=== PATIENT | male | born 1945 | race Caucasian/White ===

== ENCOUNTER 2017-10-24 12:04 | Inpatient (IN) ==
[2017-10-24] MEDS ORDERED: Aspirin 325 MG TABLET PO ONE (12:42)
--- NOTE | 2017-10-24 12:57 | Emergency Department Note ---
Disposition Clinical Impression: Atrial fibrillation Qualifiers: Atrial fibrillation type: paroxysmal Qualified Code(s): I48.0 - Paroxysmal atrial fibrillation Disposition: Admitted As Inpatient Condition: Fair Time of Disposition: 14:18 Arrhythmia/Palpitations HPI - General Chief Complaint: ED Arrhythmia/Palpitations Stated Complaint: heart racing Time Seen by Provider: 10/24/17 12:10 Nursing Notes Reviewed: Yes Vital Signs Reviewed: Yes - History of Present Illness HPI Narrative: Patient is a 72-year-old male past medical history of hypertension, diabetes, hyperlipidemia, coronary artery disease, atrial fibrillation with a past surgical history of right below the knee amputation and coronary stent placement (2013) that presents for palpitations and arrhythmia. Patient said symptoms started around 4:30 AM today. Palpitations would last one to 2 minutes and would be accompanied by left upper quadrant pressure. She denies any chest pain or shortness of breath. Denies any dizziness or lightheadedness. Denies any syncope. Last incidence of atrial fibrillation was 4 years ago. Patient is currently on Plavix and aspirin. No history of blood clot disorders. He admits to a history of hemorrhoids and does occasionally have blood while wiping but denies any hematochezia or melena. - Related Data Home Medications Medication Instructions Recorded Confirmed Allopurinol [Zyloprim 300 MG] 300 mg PO DAILY 05/29/17 10/24/17 Aspirin [Lo-Dose Aspirin EC] 81 mg PO DAILY 05/29/17 10/24/17 Atorvastatin Calcium [Lipitor] 20 mg PO HS 05/29/17 10/24/17 Fluticasone Propionate Nasal 50 mcg NS DAILY 05/29/17 10/24/17 [Flonase] Losartan Potassium [Cozaar] 100 mg PO DAILY 05/29/17 10/24/17 Metoprolol [Lopressor] 12.5 mg PO BID 05/29/17 10/24/17 metFORMIN [Glucophage] 1,000 mg PO BID 05/29/17 10/24/17 Cholecalciferol (D-3) [Vitamin D] 1,000 unit PO DAILY 10/24/17 10/24/17 Clopidogrel [Plavix] 75 mg PO DAILY 10/24/17 10/24/17 Multivit-Min/Folic/Vit K/Lycop [Hm 1 tab PO DAILY 10/24/17 10/24/17 Mens 50+ Advanced One Daily] Saw/Vit E/Sod Teagan/Lyc/Beta/Pyg 2 tab PO DAILY 10/24/17 10/24/17 [Prostate Health Caplet] Sildenafil Citrate [Viagra] 100 mg PO AD PRN 10/24/17 10/24/17 Zinc Gluconate [Zinc] 50 mg PO DAILY 10/24/17 10/24/17 Previous Rx's Medication Instructions Recorded Docusate [Colace] 100 mg PO BID #60 capsule 05/29/17 Allergies Allergy/AdvReac Type Severity Reaction Status Date / Time No Known Allergies Allergy Verified 10/24/17 12:07 Review of Systems: As Per HPI Constitutional: Denies: fever, chills, weakness, weight change Cardiovascular: Reports: palpitations. Denies: chest pain, dyspnea on exertion , orthopnea, edema, syncope Respiratory: Denies: cough, dyspnea, wheezes, hemoptysis, stridor Gastrointestinal: Reports: abdominal pain (Left upper quadrant). Denies: nausea , vomiting, diarrhea, constipation, hematemesis, melena, hematochezia Genitourinary: Denies: urgency, dysuria, frequency, hematuria Past Medical History - Past Medical History Medical history: Reports: diabetes, hyperlipidemia, hypertension Psychiatric history: Reports: no psych history - Social History Smoking Status: Never smoker Alcohol use: Reports: none Drug use: Reports: none Physical Exam - Chest Chest inspection: Present: normal inspection, symmetric chest wall rise - Respiratory Respiratory exam: Present: normal lung sounds bilaterally - Cardiovascular Cardiovascular exam: Present: tachycardia, irregular rhythm - Abdominal Exam Abdominal exam: Present: soft, Non-Tender, normal bowel sounds. Absent: tenderness, distention, guarding, rebound, rigidity, Penn's sign, Rovsing's sign, tenderness at McBurney's Point - Extremities Exam Extremities exam: Present: full ROM, normal capillary refill, other (Amputation below-knee of right leg). Absent: tenderness, pedal edema, calf tenderness - Skin Skin exam: Present: warm, dry, intact, normal color Course Course Narrative: EKG reveals new onset atrial fibrillation RVR. He has a CHADSVASC2 score of 4, which represents a stroke risk of 4.8%. No record of echocardiogram. Patient is not hypotensive. We will start patient on Cardizem for now. Troponin results pending. We will order magnesium level. We will order TSH level to rule out hyperthyroidism. We will order CBC to assess white blood cell count for any infection, hemoglobin for any anemia. Platelet levels are normal will be we will proceed to put patient on heparin drip. Chest x-ray results are pending. We will also order BMP to assess electrolyte abnormalities, especially of potassium. Update 1415: Chest x-ray shows no acute cardiopulmonary disease. There was an incidental finding of a nodule in the left upper lobe which will need to be followed. Platelet level was normal. Troponin level was negative. Patient was started on a Cardizem drip. Creatinine level was normal. Patient was started on anticoagulation with Lovenox. He currently denies any chest pain or shortness of breath. Was able to speak to hospitalist Dr. Monahan who agreed to admit the patient for new onset Atrial fibrillation. Chest X-Ray 10/24/17 12:42 IMPRESSION: No acute cardiopulmonary disease. 1.7 cm left upper lobe pulmonary nodule. Follow-up CT evaluation is recommended. D/ / Jg Everett MD / Jg Everett MD Interpreting Provider: Jg Everett MD Vital Signs Temperature 97.8 F 10/24/17 12:07 Pulse Rate 74 10/24/17 12:07 Respiratory Rate 20 10/24/17 12:07 Blood Pressure 193/98 10/24/17 12:07 O2 Sat by Pulse Oximetry 96 10/24/17 12:07 Temperature 97.8 F 10/24/17 12:54 Pulse Rate 142 10/24/17 12:54 Respiratory Rate 20 10/24/17 12:54 Blood Pressure 193/98 10/24/17 12:54 O2 Sat by Pulse Oximetry 96 10/24/17 12:54 Oxygen Delivery Oxygen Delivery Room Air Arrhythmia/Palpitations - Lab Data Result diagrams: 10/24/17 12:25 10/24/17 12:25 Lab Results 10/24/17 10/24/17 10/24/17 Range/Units 12:25 12:25 12:25 WBC 12.0 H (4.3-11.1) K/mcL RBC 5.28 (4.19-5.50) M/mcL Hgb 15.6 (12.9-16.9) g/dL Hct 45.5 (37.5-50.1) % MCV 86.2 (83.0-100.0) fL MCH 29.5 (28.0-33.3) pg MCHC 34.3 (31.6-35.5) g/dL RDW 13.1 (11.5-14.5) % Plt Count 248 (140-400) K/mcL MPV 11.6 (9.4-12.4) fL Immature Gran % 0.4 (0-4) % Seg Neutrophils % 62.0 % Lymphocytes % 26.1 % Monocytes % 7.0 % Eosinophils % 3.7 % Basophils % 0.8 % Neutrophils # 7.5 (1.6-8.9) K/mcL Lymphocytes # 3.1 (0.6-4.6) K/mcL Monocytes # 0.8 (0.0-1.3) K/mcL Eosinophils # 0.4 (0.0-0.6) K/mcL Basophils # 0.1 (0.0-0.2) K/mcL PT 9.8 (9.4-12.1) Seconds INR 0.9 APTT 31.1 (26.0-36.0) Seconds Sodium 141 (136-145) mEq/L Potassium 4.3 (3.5-5.1) mEq/L Chloride 106 (98-107) mEq/L Carbon Dioxide 26 (23-29) mEq/L BUN 15 (8-23) mg/dL Creatinine 0.86 (0.70-1.30) mg/dL Est GFR ( Amer) > 60 (> 60) Est GFR (Non-Af Amer) > 60 (> 60) BUN/Creatinine Ratio 17 (6-26) Glucose 146 H (70-105) mg/dL Calculated Osmolality 295 (280-300) Calcium 10.2 (8.6-10.3) mg/dL Magnesium 1.6 (1.6-2.6) mg/dL Troponin I < 0.03 (< 0.04) ng/mL TSH 2.293 (0.340-5.600) mcIU/mL - EKG Data EKG attestation: Yes I reviewed and interpreted this EKG. EKG shows normal: axis Rate: tachycardia Rhythm: A.Fib [place]/QRS: normal When compared to previous EKG there are: changes noted Attestation Statement - Attestation Attestation: I, Ismael Saini DO, examined this patient [id number] and my medical decision-making was reviewed with Niraj Jay PGY-1, Resident Physician. I agree with the documented findings, disposition and treatment plan as described except to the extent set forth below. Please see my progress notes for details.
[2017-10-24 13:09] LABS: Basophils # 0.1 K/mcL (0.0-0.2); Basophils % 0.8 %; Eosinophils # 0.4 K/mcL (0.0-0.6); Eosinophils % 3.7 %; Hematocrit 45.5 % (37.5-50.1); Hemoglobin 15.6 g/dL (12.9-16.9); Immature Granulocytes % 0.4 % (0-4); Lymphocytes # 3.1 K/mcL (0.6-4.6); Lymphocytes % 26.1 %; Mean Corpuscular HGB Conc 34.3 g/dL (31.6-35.5); Mean Corpuscular Hemoglobin 29.5 pg (28.0-33.3); Mean Corpuscular Volume 86.2 fL (83.0-100.0); Mean Platelet Volume 11.6 fL (9.4-12.4); Monocytes # 0.8 K/mcL (0.0-1.3); Neutrophils # 7.5 K/mcL (1.6-8.9); Platelet Count 248 K/mcL (140-400); Red Blood Count 5.28 M/mcL (4.19-5.50); Red Cell Distribution Width 13.1 % (11.5-14.5)
--- NOTE | 2017-10-24 13:11 | Emergency Department Note ---
Disposition Clinical Impression: Atrial fibrillation Qualifiers: Atrial fibrillation type: paroxysmal Qualified Code(s): I48.0 - Paroxysmal atrial fibrillation Disposition: Admitted As Inpatient Condition: Fair Referrals: Adryan Perez MD [Primary Care Provider] - Forms: ED Satisfaction Letter Time of Disposition: 14:00 General Adult HPI - General Chief complaint: ED Arrhythmia/Palpitations Stated complaint: heart racing Time Seen by Provider: 10/24/17 12:10 - History of Present Illness Pain Scale: 0 - Related Data Home Medications Medication Instructions Recorded Confirmed Allopurinol [Zyloprim 300 MG] 300 mg PO DAILY 05/29/17 05/29/17 Aspirin [Lo-Dose Aspirin EC] 81 mg PO DAILY 05/29/17 05/29/17 Atorvastatin Calcium [Lipitor] 20 mg PO HS 05/29/17 05/29/17 Fluticasone Propionate Nasal 1 spr NS DAILY 05/29/17 05/29/17 [Flonase] Losartan Potassium [Cozaar] 100 mg PO DAILY 05/29/17 05/29/17 Metoprolol [Lopressor] 12.5 mg PO BID 05/29/17 05/29/17 metFORMIN [Glucophage] 500 mg PO BID 05/29/17 05/29/17 Cholecalciferol (D-3) [Vitamin D] 1,000 unit PO DAILY 10/24/17 10/24/17 Clopidogrel [Plavix] 75 mg PO DAILY 10/24/17 10/24/17 Multivit-Min/Folic/Vit K/Lycop [Hm 1 tab PO DAILY 10/24/17 10/24/17 Mens 50+ Advanced One Daily] Saw/Vit E/Sod Teagan/Lyc/Beta/Pyg 2 tab PO DAILY 10/24/17 10/24/17 [Prostate Health Caplet] Sildenafil Citrate [Viagra] 100 mg PO AD PRN 10/24/17 10/24/17 Zinc Gluconate [Zinc] 50 mg PO DAILY 10/24/17 10/24/17 Previous Rx's Medication Instructions Recorded Docusate [Colace] 100 mg PO BID #60 capsule 05/29/17 Allergies Allergy/AdvReac Type Severity Reaction Status Date / Time No Known Allergies Allergy Verified 10/24/17 12:07 Past Medical History - Past Medical History Medical history: Reports: diabetes, hyperlipidemia, hypertension Psychiatric history: Reports: no psych history - Social History Smoking Status: Never smoker Alcohol use: Reports: none Drug use: Reports: none Course Vital Signs Temperature 97.8 F 10/24/17 12:07 Pulse Rate 74 10/24/17 12:07 Respiratory Rate 20 10/24/17 12:07 Blood Pressure 193/98 10/24/17 12:07 O2 Sat by Pulse Oximetry 96 10/24/17 12:07 Temperature 97.8 F 10/24/17 12:54 Pulse Rate 142 10/24/17 12:54 Respiratory Rate 20 10/24/17 12:54 Blood Pressure 193/98 10/24/17 12:54 O2 Sat by Pulse Oximetry 96 10/24/17 12:54 Oxygen Delivery Oxygen Delivery Room Air Medical Decision Making - Lab Data Result diagrams: 10/24/17 12:25 10/24/17 12:25 Lab Results 10/24/17 10/24/17 10/24/17 Range/Units 12:25 12:25 12:25 WBC 12.0 H (4.3-11.1) K/mcL RBC 5.28 (4.19-5.50) M/mcL Hgb 15.6 (12.9-16.9) g/dL Hct 45.5 (37.5-50.1) % MCV 86.2 (83.0-100.0) fL MCH 29.5 (28.0-33.3) pg MCHC 34.3 (31.6-35.5) g/dL RDW 13.1 (11.5-14.5) % Plt Count 248 (140-400) K/mcL MPV 11.6 (9.4-12.4) fL Immature Gran % 0.4 (0-4) % Seg Neutrophils % 62.0 % Lymphocytes % 26.1 % Monocytes % 7.0 % Eosinophils % 3.7 % Basophils % 0.8 % Neutrophils # 7.5 (1.6-8.9) K/mcL Lymphocytes # 3.1 (0.6-4.6) K/mcL Monocytes # 0.8 (0.0-1.3) K/mcL Eosinophils # 0.4 (0.0-0.6) K/mcL Basophils # 0.1 (0.0-0.2) K/mcL PT 9.8 (9.4-12.1) Seconds INR 0.9 APTT 31.1 (26.0-36.0) Seconds Sodium 141 (136-145) mEq/L Potassium 4.3 (3.5-5.1) mEq/L Chloride 106 (98-107) mEq/L Carbon Dioxide 26 (23-29) mEq/L BUN 15 (8-23) mg/dL Creatinine 0.86 (0.70-1.30) mg/dL Est GFR ( Amer) > 60 (> 60) Est GFR (Non-Af Amer) > 60 (> 60) BUN/Creatinine Ratio 17 (6-26) Glucose 146 H (70-105) mg/dL Calculated Osmolality 295 (280-300) Calcium 10.2 (8.6-10.3) mg/dL Magnesium 1.6 (1.6-2.6) mg/dL Troponin I < 0.03 (< 0.04) ng/mL TSH 2.293 (0.340-5.600) mcIU/mL Attestation Statement - Attestation Attestation: I, Ismael Saini DO, examined this patient [id number] and my medical decision-making was reviewed with Niraj Jay PGY-1, Resident Physician. I agree with the documented findings, disposition and treatment plan as described except to the extent set forth below. Please see my progress notes for details. 72-year-old male presents to the emergency room with complaint of intermittent palpitation. Patient has had paroxysmal atrial fibrillation in the past and has not been in any medications for it. Patient denies any recent illnesses fevers chills chest pain shortness of breath headache or vision change. Denies any trauma or injury. Patient has not had any other symptoms or issues at this time. Patient was concerned because intermittently gets palpitations in his chest he feels his heart fluttering. Patient is resting comfortably in the bed. Lungs are clear heart is irregular on examination. Blood pressure vital signs are stable. Abdomen is soft nontender nondistended no guarding no rigidity no peritoneal symptoms. Patient moves all 4 of his extremities without any problem or complication. He does not appear to be any specific distress. Initial EKG shows atrial fibrillation with rapid ventricular response. Patient had screening labs including electrolytes and magnesium ordered here today. Patient will also have Cardizem drip ordered secondary to the tachycardia. We will continue to monitor his treatment course is completed. Patient will most likely require admission considering he has been having frequent palpitations and is not currently on any anticoagulation except for Plavix and aspirin. Patient's family is at the bedside and are comfortable with the plan. Patient is otherwise showing no acute signs of decompensation or concern for medical issue. Patient will be observed in emergency room until admission process is completed. See detailed documentation of the physical exam , medical intervention, medical decision-making and disposition. Patient was started on a Cardizem drip and will have a heparin drip ordered after we confirm that he has not had any melena, hematochezia, gastric ulcers or bleeding. Patient denies any these issues in a heparin drip will be ordered at this time. Hemoglobin and platelet will be checked prior to medication being started. 1345 Patient's labs are unremarkable. Cardizem drip was started this time. Lovenox as requested by the hospitalist Dr. wiseman. Patient will be admitted for symptomatic evaluation and management. Patient otherwise is resting comfortably in the bed no distress and no other acute pathology noted in his treatment course for evaluation. No critical care applied to the patient's treatment course at this time. Function was reviewed and patient is at baseline with stable creatinine
[2017-10-24 13:14] LABS: INR 0.9; Prothrombin Time 9.8 Seconds (9.4-12.1)
[2017-10-24 13:17] LABS: Activated Partial Thrombo Time 31.1 Seconds (26.0-36.0)
[2017-10-24 13:33] LABS: BUN/Creatinine Ratio 17 (6-26); Blood Urea Nitrogen 15 mg/dL (8-23); Calcium 10.2 mg/dL (8.6-10.3); Carbon Dioxide 26 mEq/L (23-29); Chloride 106 mEq/L (98-107); Glucose 146 mg/dL (70-105); Magnesium 1.6 mg/dL (1.6-2.6); Osmolality,Calculated 295 (280-300); Potassium 4.3 mEq/L (3.5-5.1); Sodium 141 mEq/L (136-145); eGFR For African Americans > 60 (> 60); eGFR For Non-African Americans > 60 (> 60)
[2017-10-24 13:34] LABS: Troponin I < 0.03 ng/mL (< 0.04)
[2017-10-24] MEDS ORDERED: Heparin 25,000 UNIT/500 ML D5W 25,000 UNIT/500 ML BAG IVC SCH (13:45)
[2017-10-24 13:48] LABS: Thyroid Stimulating Hormone 2.293 mcIU/mL (0.340-5.600)
[2017-10-24] MEDS ORDERED: *HR* HYDROcodone/Acet 5/325 mg TABLET PO PRN (14:24)
[2017-10-24] MEDS ORDERED: Naloxone 0.4 MG/ML INJ IVP PRN (14:24)
--- NOTE | 2017-10-24 14:37 | Internal Med History&Physical ---
Date of Encounter: 10/24/17 Time of Encounter: 14:33 Internal Medicine - H&P: HPI Chief complaint: My heart is racing Admitted From: Emergency Dept Plans for Post Hospital Care: Home History of present illness: Mr. Goldstein is a 72 year old male has a background medical history of diabetes, hypertension, dyslipidemia, paroxysmal atrial fibrillation. History of present illness Patient came to emergency room as it was noted that his heart was racing since last 24 hours. Patient tried some home but is to begin with but apparently it did not help him at all. patient persistently noted that there was a difficulty in breathing when his heart rate is above 100. Patient tried to major his blood pressure at home. In view of the persistent heart rate patient started getting occasional chest pain. Patient denies nausea, vomiting, abdominal pain, diarrhea and dizziness. Workup in the emergency room: Patient was evaluated in the emergency room. Patient underwent chest x-ray examination. Basic labs were drawn. EKG was done. Noted that EKG showed atrial fibrillation with rapid ventricular rate. Patient was started on IV Cardizem drip. Lovenox was prescribed to the patient 1 mg per KG. Reason for admission: New onset of atrial fibrillation with rapid ventricular response which requires intravenous rate controlling medication. Family history: Noncontributory Past Med Surg Social Fam HX - Past Medical History Medical history: diabetes, hyperlipidemia, hypertension Psychiatric history: no psych history - Social History Smoking Status: Never smoker Smokeless Tobacco Status: No Alcohol use: none Drug use: none Internal Medicine - H&P: Meds Allopurinol [Zyloprim 300 MG] 300 mg PO DAILY 05/29/17 [History] Aspirin [Lo-Dose Aspirin EC] 81 mg PO DAILY 05/29/17 [History] Atorvastatin Calcium [Lipitor] 20 mg PO HS 05/29/17 [History] Docusate [Colace] 100 mg PO BID #60 capsule 05/29/17 [Rx] Fluticasone Propionate Nasal [Flonase] 50 mcg NS DAILY 05/29/17 [History] Losartan Potassium [Cozaar] 100 mg PO DAILY 05/29/17 [History] Metoprolol [Lopressor] 12.5 mg PO BID 05/29/17 [History] metFORMIN [Glucophage] 1,000 mg PO BID 05/29/17 [History] Cholecalciferol (D-3) [Vitamin D] 1,000 unit PO DAILY 10/24/17 [History] Clopidogrel [Plavix] 75 mg PO DAILY 10/24/17 [History] Multivit-Min/Folic/Vit K/Lycop [Hm Mens 50+ Advanced One Daily] 1 tab PO DAILY 10/24/17 [History] Saw/Vit E/Sod Teagan/Lyc/Beta/Pyg [Prostate Health Caplet] 2 tab PO DAILY 10/24/17 [History] Sildenafil Citrate [Viagra] 100 mg PO AD PRN 10/24/17 [History] Zinc Gluconate [Zinc] 50 mg PO DAILY 10/24/17 [History] 3 Allergy/AdvReac Type Severity Reaction Status Date / Time No Known Allergies Allergy Verified 10/24/17 12:07 All Systems PM: A 10-system review of systems was performed and is negative for pertinent findings except as documented above in the HPI. - Constitutional Constitutional: no chills, no fever(s), no night sweats - EENT Eyes: no change in vision, no discharge, no pain, no photophobia Ears: no ear discharge, no ear pain, no tinnitus Nose, mouth and throat: no dysphagia, no nasal discharge, no neck pain, no sore throat - Cardiovascular Cardiovascular ROS IM: chest pain, diaphoresis, dyspnea, dyspnea on exertion, no lightheadedness, no palpitations, no syncope - Respiratory Respiratory: no cough, no dyspnea, no wheezing, no excessive phlegm production - Gastrointestinal Gastrointestinal: no abdominal pain, no diarrhea, no hematemesis, no hematochezia, no melena, no nausea, no vomiting - Musculoskeletal Musculoskeletal ROS IM: no numbness, no tingling - Integumentary Integumentary IM: no rash, no unusual bruising - Neurological Neurological ROS: no confusion, no convulsions, no focal weakness, no numbness, no tingling, no tremor(s) - Hematologic/Lymphatic Hematologic/Lymphatic: no easy bruising - Constitutional Vitals: Temp Pulse Resp BP Pulse Ox 97.8 F 142 20 193/98 96 10/24/17 12:54 10/24/17 12:54 10/24/17 12:54 10/24/17 12:54 10/24/17 12:54 General appearance: Present: A&O X 3, pleasant, no acute distress, answers questions appropriately - Head Head exam: Present: atraumatic, normocephalic - Eye Eye exam: Present: PERRL, conjuntiva pink, sclera anicteric Pupils: Present: PERRL - Neck Neck exam general surgery: Present: supple, trachea midline. Absent: lymphadenopathy - Respiratory Respiratory exam: Present: CTAB. Absent: accessory muscle use, rales, rhonchi, wheezes - Cardiovascular Cardiovascular exam: Present: RRR, +S1, +S2. Absent: diastolic murmur, gallop, rubs, systolic murmur Additional comments: S1/S2 normal. There is a grade 2/6 murmur present. - GI/Abdominal GI/Abdominal exam: Present: normal bowel sounds, soft, no peritoneal signs. Absent: distended, tenderness - Extremities Exam Extremities exam: Present: warm, radial pulses palpable and symmetrical. Absent : calf tenderness, cyanotic, pedal edema - Neurological Exam Neurological exam: Present: CN II-XII intact, oriented X3, no focal deficits. Absent: pronater drift, facial droop, speech deficit - Skin Skin exam: Present: dry, intact Internal Med - H&P Results - Labs CBC & Chem 7: 10/24/17 12:25 10/24/17 12:25 - Assessment and plan (1) Atrial fibrillation Current Visit: Yes Status: Acute Assessment and plan: 72/male Came to ER with the heart racing. EKG: Atrial fibrillation with rapid ventricular rate. Assessment: Adequate ambulation with a rapid ventricular rate. Plan: Admit as inpatient. Rate control: Cardizem drip/metoprolol. Anticoagulation: Lovenox. will resume home medications I have examined this patient in the emergency room #22. patient's family member at bedside. Plan of care extent to the patient and family. The verbalize understanding. Qualifiers: Atrial fibrillation type: paroxysmal Qualified Code(s): I48.0 - Paroxysmal atrial fibrillation (2) Hypertension Current Visit: Yes Status: Acute Assessment and plan: Patient is known to have a hypertension. patient is on appropriate medication for that. At this point patient's blood pressure is acceptable range. We will continue her home medication. Qualifiers: Hypertension type: essential hypertension Qualified Code(s): I10 - Essential (primary) hypertension (3) Diabetes mellitus Current Visit: Yes Status: Acute Assessment and plan: Patient is known to have diabetes mellitus. We will follow at this point the orders from [facility] insulin order set. Qualifiers: Diabetes mellitus type: type 2 Diabetes mellitus shelter insulin use: without batch operator use Diabetes mellitus complication status: with other specified complication Qualified Code(s): E11.69 - Type 2 diabetes mellitus with other specified complication (4) Dyslipidemia Current Visit: Yes Status: Acute Assessment and plan: Patient is presently on Lipitor. We will get lipid panel tomorrow morning. We will continue home medication for now. (5) DVT prophylaxis Current Visit: Yes Status: Acute Assessment and plan: Heparin drip Medical decision making: This patient is a moderate to severe risk of worsening in spite of being on appropriate medication due to the underlying complex medical condition. - Time Spent With Patient Total time spent is greater than 50% in coordination of care (as documented) at patient's floor/unit and/or counseling patient:
[2017-10-24] MEDS ORDERED: *HR* Enoxaparin 80 MG/0.8 ML SYRINGE SQ ONE (18:00)
[2017-10-25] MEDS ORDERED: dilTIAZem HCl 60 MG TABLET PO SCH (00:30)
[2017-10-25 05:16] LABS: Basophils # 0.1 K/mcL (0.0-0.2); Eosinophils # 0.6 K/mcL (0.0-0.6); Eosinophils % 4.8 %; Hemoglobin 15.2 g/dL (12.9-16.9); Immature Granulocytes % 0.3 % (0-4); Lymphocytes # 3.8 K/mcL (0.6-4.6); Lymphocytes % 32.6 %; Mean Corpuscular HGB Conc 33.8 g/dL (31.6-35.5); Mean Corpuscular Hemoglobin 29.1 pg (28.0-33.3); Mean Corpuscular Volume 86.2 fL (83.0-100.0); Mean Platelet Volume 11.9 fL (9.4-12.4); Monocytes # 0.9 K/mcL (0.0-1.3); Monocytes % 7.5 %; Neutrophils # 6.2 K/mcL (1.6-8.9); Platelet Count 240 K/mcL (140-400); Red Blood Count 5.22 M/mcL (4.19-5.50); Red Cell Distribution Width 13.2 % (11.5-14.5); Segmented Neutrophils % 53.8 %
[2017-10-25 05:29] LABS: Alanine Aminotransferase 24 Units/L (7-52); Albumin 4.1 g/dL (3.5-5.7); Albumin/Globulin Ratio 1.8 (1.1-2.2); Alkaline Phosphatase 126 Units/L (34-104); Aspartate Amino Transferase 16 Units/L (13-39); BUN/Creatinine Ratio 18 (6-26); Bilirubin,Total 0.5 mg/dL (0.3-1.0); Blood Urea Nitrogen 16 mg/dL (8-23); Calcium 9.5 mg/dL (8.6-10.3); Carbon Dioxide 28 mEq/L (23-29); Chloride 104 mEq/L (98-107); Chol/HDL Ratio 3.1 (0-4.9); Cholesterol 109 mg/dL (< 200); Globulin 2.3 g/dL (2.4-3.5); Glucose 163 mg/dL (70-105); HDL Cholesterol 35 mg/dL (40-59); LDL Cholesterol,Calculated -2 mg/dL (0-99); Magnesium 1.7 mg/dL (1.6-2.6); Osmolality,Calculated 295 (280-300); Sodium 140 mEq/L (136-145); Total Protein 6.4 g/dL (6.4-8.9); Triglycerides 381 mg/dL (< 150); eGFR For African Americans > 60 (> 60); eGFR For Non-African Americans > 60 (> 60)
[2017-10-25 05:36] LABS: INR 1.1; Prothrombin Time 11.4 Seconds (9.4-12.1)
[2017-10-25 05:39] LABS: Activated Partial Thrombo Time 32.2 Seconds (26.0-36.0)
[2017-10-25] MEDS: Cholecalciferol (D-3) 1,000 UNIT TABLET PO SCH (08:34)
[2017-10-25] MEDS: Aspirin Enteric Coated 81 MG Tablet PO SCH (08:34)
[2017-10-25] MEDS ORDERED: ZINC GLUCONATE 50 MG TP SCH (09:00)
[2017-10-25] MEDS: Zinc Sulfate 220 MG CAPSULE PO SCH (11:39)
[2017-10-25] MEDS ORDERED: Isovue-370 500 ML INFUS..BTL IV ONE (12:31)
--- NOTE | 2017-10-25 15:01 | Event Note ---
Date of Encounter: 10/25/17 Time of Encounter: 09:45 I saw at the bedside and examined this patient on 10/25/17 and my medical decision -making was reviewed with the Resident Physician. I agree with the documented findings, disposition and treatment plan as described except to the extent set forth below. 72-year-old male with known history of atrial fibrillation not on anticoagulation, on metoprolol at home, admitted and being managed for A. fib with rapid ventricular response. He has additional past medical history of diabetes mellitus, hypertension, and hyperlipidemia. Workup on admission unremarkable except for lung nodule 1.7 cm found on chest x-ray. Physical examination is unremarkable. Heart rate is now controlled on home dose of metoprolol. Patient is on Lovenox for anticoagulation, continue the same. Labs and imaging reviewed: ECHO unremarkable Continue current care, obtain chest CT scan without contrast (patient is on metformin) to assess lung nodule as recommended by the radiologist. Patient is clinically and hemodynamically stable at this time. Choice of oral anticoagulation will be discussed after chest CT. Rest of details as in the resident physicians documentation.
--- NOTE | 2017-10-25 15:09 | Internal Med Progress Note ---
<Harpreet Rossi - Last Filed: 10/25/17 15:06> Date of Encounter: 10/25/17 Time of Encounter: 11:00 - Assessment and plan (1) Atrial fibrillation Current Visit: Yes Status: Acute Assessment and plan: Currently well controlled with home dose Lopressor. Cardizem drip has been d/c. Asymptomatic. Increase lopressor as needed if patient has episode of A. fib with RVR. Patient does not take any medications at home for rate control. No need for starting diltiazem at this time. Qualifiers: Atrial fibrillation type: paroxysmal Qualified Code(s): I48.0 - Paroxysmal atrial fibrillation (2) Hypertension Current Visit: Yes Status: Acute Assessment and plan: Patient is known to have a hypertension. patient is on appropriate medication for that. At this point patient's blood pressure is acceptable range. We will continue his home medication. Qualifiers: Hypertension type: essential hypertension Qualified Code(s): I10 - Essential (primary) hypertension (3) Diabetes mellitus Current Visit: Yes Status: Acute Assessment and plan: Patient is known to have diabetes mellitus. We will follow at this point the orders from [facility] insulin order set. Qualifiers: Diabetes mellitus type: type 2 Diabetes mellitus half-way insulin use: without half-way use Diabetes mellitus complication status: with other specified complication Qualified Code(s): E11.69 - Type 2 diabetes mellitus with other specified complication (4) Dyslipidemia Current Visit: Yes Status: Acute Assessment and plan: Patient is presently on Lipitor. We will get lipid panel tomorrow morning. We will continue home medication for now. (5) DVT prophylaxis Current Visit: Yes Status: Acute Assessment and plan: Continue lovenox (6) Lung nodule Current Visit: Yes Status: Acute Assessment and plan: New 1.7cm left upper lobe lung nodule noted on CXR. Patient unaware of nodule in the past. No previous imaging to compare. Patient had dose of metformin recently, not advisable to obtain contrast. CT chest w/o contrast ordered. Follow-up tomorrow. - Time Spent With Patient Total time spent is greater than 50% in coordination of care (as documented) at patient's floor/unit and/or counseling patient: Greater than 35 minutes - Subjective Interval history: 72M with history of diabetes, HTN, dyslipidemia, paroxysmal A. fib is admitted for A. fib with RVR. Today, patient is asymptomatic. He denies CP, SOB, cough, abdominal pain. Denies weakness of facial weakness. Patient states that ~10 years ago, he was diagnosed with A.fib but did not received medical therapy. Voiding without difficulty, +BM, tolerating PO. No acute complaints. He was unaware of pulmonary nodule, took metformin recently. - Constitutional Vitals: Temp Pulse Resp BP Pulse Ox 98.2 F 87 20 132/80 95 10/25/17 14:58 10/25/17 14:58 10/25/17 14:58 10/25/17 14:58 10/25/17 14:58 General appearance: Present: A&O X 3, pleasant, no acute distress, answers questions appropriately - Head Head exam: Present: atraumatic, normocephalic - Eye Eye exam: Present: normal appearance, conjuntiva pink, sclera anicteric - Neck Neck exam general surgery: Present: supple, trachea midline. Absent: lymphadenopathy - Respiratory Respiratory exam: Present: CTAB. Absent: accessory muscle use, rales, rhonchi, wheezes - Cardiovascular Cardiovascular exam: Present: RRR, +S1, +S2. Absent: diastolic murmur, gallop, rubs, systolic murmur - GI/Abdominal GI/Abdominal exam: Present: normal bowel sounds, soft, no peritoneal signs. Absent: distended, tenderness - Extremities Exam Extremities exam: Present: warm, radial pulses palpable and symmetrical. Absent : calf tenderness, cyanotic, pedal edema - Neurological Exam Neurological exam: Present: CN II-XII intact, oriented X3, no focal deficits. Absent: pronater drift, facial droop, speech deficit - Skin Skin exam: Present: dry, intact Internal Medicine: Result - Labs CBC & Chem 7: 10/25/17 04:09 10/25/17 04:09 Labs: Short CBC 10/25/17 Range/Units 04:09 WBC 11.5 H (4.3-11.1) K/mcL Hgb 15.2 (12.9-16.9) g/dL Hct 45.0 (37.5-50.1) % Plt Count 240 (140-400) K/mcL Neutrophils # 6.2 (1.6-8.9) K/mcL BMP 10/25/17 04:09 Sodium 140 Potassium 4.0 Chloride 104 Carbon Dioxide 28 BUN 16 Creatinine 0.89 Glucose 163 H Calcium 9.5 Cardiac Enzymes 10/24/17 10/24/17 10/25/17 Range/Units 14:59 20:07 04:09 Troponin I < 0.03 < 0.03 < 0.03 (< 0.04) ng/mL Liver Function 10/25/17 Range/Units 04:09 Total Bilirubin 0.5 (0.3-1.0) mg/dL AST 16 (13-39) Units/L ALT 24 (7-52) Units/L Alkaline Phosphatase 126 H (34-104) Units/L Albumin 4.1 (3.5-5.7) g/dL - ABG Interpretation ABG results: PT/INR, D-dimer PT 11.4 Seconds (9.4-12.1) 10/25/17 04:09 - Impressions Impressions Echocardiogram 10/25/17 09:00 Impressions: LVEF 60-65%. Indeterminate diastolic function. Normal right ventricular structure and function. No significant valvular dysfunction. No pulmonary hypertension. Left Ventricular Wall Motion: Rest Echo Findings All wall segments showed normal motion. Findings: Study Quality * Technically adequate exam. ECG Findings * Atrial fibrillation. Left Ventricle * LVEF 60-65%. * Normal LV chamber size, wall thickness and function. * Indeterminate diastolic function. Right Ventricle * Normal right ventricular structure and function. Left Atrium * Mildly dilated left atrium. Right Atrium * Normal right atrial size. Mitral Valve * Normal mitral valve structure. * No mitral stenosis. * Trace mitral regurgitation. Tricuspid Valve * Normal tricuspid valve structure. * Trace tricuspid regurgitation. Aortic Valve * Aortic valve not well visualized. * No aortic regurgitation. * No aortic stenosis. Pulmonic Valve * Pulmonic valve is not well visualized. * No pulmonic stenosis. * No pulmonic regurgitation. Pulmonary Artery * Normal visualized portions of the main pulmonary artery. Aorta * Normally sized aortic root. Pericardium * There is no pericardial effusion present. Interatrial Septum * No evidence of PFO by color Doppler. IVC * The IVC is not well evaluated. Chest CT 10/25/17 12:33 IMPRESSION: 1. Left upper lobe 1.6 x 1.2 cm sub solid nodule. Please see below for follow-up recommendations. 2. Coronary artery disease. 3. Emphysema. 4. Bony changes in the thoracic spine suggestive of seronegative spondyloarthropathy, such as ankylosing spondylitis. Please correlate with clinical history. RECOMMENDATIONS: Fleischner Society guidelines for follow-up and management of incidentally detected subsolid pulmonary nodules: Solitary part-solid nodules > than or equal to 6 mm - CT at 3-6 to confirm persistence. If unchanged and solid component remains less than 6 mm, annual CT should be performed for 5 years. - Low risk patients include individuals with minimal or absent history of smoking and other known risk factors. - High risk patients include individuals with a history or smoking or known risk factors. Radiology 2017 http://pubs.[facility]na.org/doi/full/10.1148/radiol.[email or web address] D/ / 10/25/2017 14:50:35 Heri Vance MD / glenn Interpreting Provider: Heri Vance MD Consult Discharge Plan - Plan Referrals: Adryan Perez MD [Primary Care Provider] - <Manny Estrella - Last Filed: 10/25/17 19:54> Date of Encounter: 10/25/17 - Assessment and plan (1) Atrial fibrillation Current Visit: Yes Status: Acute Qualifiers: Atrial fibrillation type: paroxysmal Qualified Code(s): I48.0 - Paroxysmal atrial fibrillation (2) Hypertension Current Visit: Yes Status: Acute Qualifiers: Hypertension type: essential hypertension Qualified Code(s): I10 - Essential (primary) hypertension (3) Diabetes mellitus Current Visit: Yes Status: Acute Qualifiers: Diabetes mellitus type: type 2 Diabetes mellitus half-way insulin use: without applications specialist use Diabetes mellitus complication status: with other specified complication Qualified Code(s): E11.69 - Type 2 diabetes mellitus with other specified complication (4) Dyslipidemia Current Visit: Yes Status: Acute (5) DVT prophylaxis Current Visit: Yes Status: Acute (6) Lung nodule Current Visit: Yes Status: Acute - Time Spent With Patient Total time spent is greater than 50% in coordination of care (as documented) at patient's floor/unit and/or counseling patient: - Constitutional Vitals: Temp Pulse Resp BP Pulse Ox 98.2 F 87 20 132/80 95 10/25/17 14:58 10/25/17 14:58 10/25/17 14:58 10/25/17 14:58 10/25/17 14:58 Internal Medicine: Result - Labs CBC & Chem 7: 10/25/17 04:09 10/25/17 04:09 Labs: Short CBC 10/25/17 Range/Units 04:09 WBC 11.5 H (4.3-11.1) K/mcL Hgb 15.2 (12.9-16.9) g/dL Hct 45.0 (37.5-50.1) % Plt Count 240 (140-400) K/mcL Neutrophils # 6.2 (1.6-8.9) K/mcL BMP 10/25/17 04:09 Sodium 140 Potassium 4.0 Chloride 104 Carbon Dioxide 28 BUN 16 Creatinine 0.89 Glucose 163 H Calcium 9.5 Cardiac Enzymes 10/24/17 10/25/17 Range/Units 20:07 04:09 Troponin I < 0.03 < 0.03 (< 0.04) ng/mL Liver Function 10/25/17 Range/Units 04:09 Total Bilirubin 0.5 (0.3-1.0) mg/dL AST 16 (13-39) Units/L ALT 24 (7-52) Units/L Alkaline Phosphatase 126 H (34-104) Units/L Albumin 4.1 (3.5-5.7) g/dL - ABG Interpretation ABG results: PT/INR, D-dimer PT 11.4 Seconds (9.4-12.1) 10/25/17 04:09 - Impressions Impressions Echocardiogram 10/25/17 09:00 Impressions: LVEF 60-65%. Indeterminate diastolic function. Normal right ventricular structure and function. No significant valvular dysfunction. No pulmonary hypertension. Left Ventricular Wall Motion: Rest Echo Findings All wall segments showed normal motion. Findings: Study Quality * Technically adequate exam. ECG Findings * Atrial fibrillation. Left Ventricle * LVEF 60-65%. * Normal LV chamber size, wall thickness and function. * Indeterminate diastolic function. Right Ventricle * Normal right ventricular structure and function. Left Atrium * Mildly dilated left atrium. Right Atrium * Normal right atrial size. Mitral Valve * Normal mitral valve structure. * No mitral stenosis. * Trace mitral regurgitation. Tricuspid Valve * Normal tricuspid valve structure. * Trace tricuspid regurgitation. Aortic Valve * Aortic valve not well visualized. * No aortic regurgitation. * No aortic stenosis. Pulmonic Valve * Pulmonic valve is not well visualized. * No pulmonic stenosis. * No pulmonic regurgitation. Pulmonary Artery * Normal visualized portions of the main pulmonary artery. Aorta * Normally sized aortic root. Pericardium * There is no pericardial effusion present. Interatrial Septum * No evidence of PFO by color Doppler. IVC * The IVC is not well evaluated. Chest CT 10/25/17 12:33 IMPRESSION: 1. Left upper lobe 1.6 x 1.2 cm sub solid nodule. Please see below for follow-up recommendations. 2. Coronary artery disease. 3. Emphysema. 4. Bony changes in the thoracic spine suggestive of seronegative spondyloarthropathy, such as ankylosing spondylitis. Please correlate with clinical history. RECOMMENDATIONS: Fleischner Society guidelines for follow-up and management of incidentally detected subsolid pulmonary nodules: Solitary part-solid nodules > than or equal to 6 mm - CT at 3-6 to confirm persistence. If unchanged and solid component remains less than 6 mm, annual CT should be performed for 5 years. - Low risk patients include individuals with minimal or absent history of smoking and other known risk factors. - High risk patients include individuals with a history or smoking or known risk factors. Radiology 2017 http://pubs.[facility]na.org/doi/full/10.1148/radiol.[email or web address] D/ / 10/25/2017 14:50:35 Heri Vance MD / glenn Interpreting Provider: Heri Vance MD - Attending Attestation see my event note
[2017-10-26 07:36] LABS: INR 1.1; Prothrombin Time 11.4 Seconds (9.4-12.1)
--- NOTE | 2017-10-26 08:29 | Internal Med Progress Note ---
Date of Encounter: 10/26/17 - Assessment and plan (1) Atrial fibrillation Current Visit: Yes Status: Acute Qualifiers: Atrial fibrillation type: paroxysmal Qualified Code(s): I48.0 - Paroxysmal atrial fibrillation (2) Hypertension Current Visit: Yes Status: Acute Qualifiers: Hypertension type: essential hypertension Qualified Code(s): I10 - Essential (primary) hypertension (3) Diabetes mellitus Current Visit: Yes Status: Acute Qualifiers: Diabetes mellitus type: type 2 Diabetes mellitus technician terminal and repeater insulin use: without fpc use Diabetes mellitus complication status: with other specified complication Qualified Code(s): E11.69 - Type 2 diabetes mellitus with other specified complication (4) Dyslipidemia Current Visit: Yes Status: Acute (5) DVT prophylaxis Current Visit: Yes Status: Acute (6) Lung nodule Current Visit: Yes Status: Acute - Time Spent With Patient Total time spent is greater than 50% in coordination of care (as documented) at patient's floor/unit and/or counseling patient: - Constitutional Vitals: Temp Pulse Resp BP Pulse Ox 97.5 F L 98 16 110/75 95 10/26/17 07:00 10/26/17 07:00 10/26/17 07:00 10/26/17 07:00 10/26/17 07:00 General appearance: Present: A&O X 3, pleasant, no acute distress, answers questions appropriately Internal Medicine: Result - Labs CBC & Chem 7: 10/25/17 04:09 10/25/17 04:09 - ABG Interpretation ABG results: PT/INR, D-dimer PT 11.4 Seconds (9.4-12.1) 10/26/17 06:16 - Impressions Impressions Echocardiogram 10/25/17 09:00 Impressions: LVEF 60-65%. Indeterminate diastolic function. Normal right ventricular structure and function. No significant valvular dysfunction. No pulmonary hypertension. Left Ventricular Wall Motion: Rest Echo Findings All wall segments showed normal motion. Findings: Study Quality * Technically adequate exam. ECG Findings * Atrial fibrillation. Left Ventricle * LVEF 60-65%. * Normal LV chamber size, wall thickness and function. * Indeterminate diastolic function. Right Ventricle * Normal right ventricular structure and function. Left Atrium * Mildly dilated left atrium. Right Atrium * Normal right atrial size. Mitral Valve * Normal mitral valve structure. * No mitral stenosis. * Trace mitral regurgitation. Tricuspid Valve * Normal tricuspid valve structure. * Trace tricuspid regurgitation. Aortic Valve * Aortic valve not well visualized. * No aortic regurgitation. * No aortic stenosis. Pulmonic Valve * Pulmonic valve is not well visualized. * No pulmonic stenosis. * No pulmonic regurgitation. Pulmonary Artery * Normal visualized portions of the main pulmonary artery. Aorta * Normally sized aortic root. Pericardium * There is no pericardial effusion present. Interatrial Septum * No evidence of PFO by color Doppler. IVC * The IVC is not well evaluated. Chest CT 10/25/17 12:33 IMPRESSION: 1. Left upper lobe 1.6 x 1.2 cm sub solid nodule. Please see below for follow-up recommendations. 2. Coronary artery disease. 3. Emphysema. 4. Bony changes in the thoracic spine suggestive of seronegative spondyloarthropathy, such as ankylosing spondylitis. Please correlate with clinical history. RECOMMENDATIONS: Fleischner Society guidelines for follow-up and management of incidentally detected subsolid pulmonary nodules: Solitary part-solid nodules > than or equal to 6 mm - CT at 3-6 to confirm persistence. If unchanged and solid component remains less than 6 mm, annual CT should be performed for 5 years. - Low risk patients include individuals with minimal or absent history of smoking and other known risk factors. - High risk patients include individuals with a history or smoking or known risk factors. Radiology 2017 http://pubs.[facility]na.org/doi/full/10.1148/radiol.[email or web address] D/ / 10/25/2017 14:50:35 Heri Vance MD / glenn Interpreting Provider: Heri Vance MD Consult Discharge Plan - Plan Referrals: Adryan Perez MD [Primary Care Provider] -
[2017-10-26] MEDS ORDERED: Apixaban 5 MG TABLET PO SCH (09:00)
[2017-10-26] MEDS ORDERED: *HR* Metoprolol 5 MG/5 ML VIAL IVP ONE (09:50)
[2017-10-26] MEDS: Aspirin Enteric Coated 81 MG Tablet PO SCH (10:45)
[2017-10-26] MEDS: Cholecalciferol (D-3) 1,000 UNIT TABLET PO SCH (10:45)
[2017-10-26] MEDS: Zinc Sulfate 220 MG CAPSULE PO SCH (10:46)
--- NOTE | 2017-10-26 14:43 | Internal Med Progress Note ---
<Manny Estrella - Last Filed: 10/26/17 16:24> Date of Encounter: 10/26/17 - Assessment and plan (1) Atrial fibrillation Current Visit: Yes Status: Acute Qualifiers: Atrial fibrillation type: paroxysmal Qualified Code(s): I48.0 - Paroxysmal atrial fibrillation (2) Hypertension Current Visit: Yes Status: Acute Qualifiers: Hypertension type: essential hypertension Qualified Code(s): I10 - Essential (primary) hypertension (3) Diabetes mellitus Current Visit: Yes Status: Acute Qualifiers: Diabetes mellitus type: type 2 Diabetes mellitus nursing home insulin use: without terminal worker use Diabetes mellitus complication status: with other specified complication Qualified Code(s): E11.69 - Type 2 diabetes mellitus with other specified complication (4) Dyslipidemia Current Visit: Yes Status: Acute (5) DVT prophylaxis Current Visit: Yes Status: Acute (6) Lung nodule Current Visit: Yes Status: Acute - Time Spent With Patient Total time spent is greater than 50% in coordination of care (as documented) at patient's floor/unit and/or counseling patient: - Constitutional Vitals: Temp Pulse Resp BP Pulse Ox 97.9 F 105 16 136/79 94 10/26/17 10:54 10/26/17 10:54 10/26/17 10:54 10/26/17 10:54 10/26/17 10:54 Internal Medicine: Result - Labs CBC & Chem 7: 10/25/17 04:09 10/25/17 04:09 - ABG Interpretation ABG results: PT/INR, D-dimer PT 11.4 Seconds (9.4-12.1) 10/26/17 06:16 - Impressions Impressions Chest CT 10/25/17 12:33 IMPRESSION: 1. Left upper lobe 1.6 x 1.2 cm sub solid nodule. Please see below for follow-up recommendations. 2. Coronary artery disease. 3. Emphysema. 4. Bony changes in the thoracic spine suggestive of seronegative spondyloarthropathy, such as ankylosing spondylitis. Please correlate with clinical history. RECOMMENDATIONS: Fleischner Society guidelines for follow-up and management of incidentally detected subsolid pulmonary nodules: Solitary part-solid nodules > than or equal to 6 mm - CT at 3-6 to confirm persistence. If unchanged and solid component remains less than 6 mm, annual CT should be performed for 5 years. - Low risk patients include individuals with minimal or absent history of smoking and other known risk factors. - High risk patients include individuals with a history or smoking or known risk factors. Radiology 2017 http://pubs.[facility]na.org/doi/full/10.1148/radiol.[email or web address] D/ / 10/25/2017 14:50:35 Heri Vance MD / glenn Interpreting Provider: Heri Vance MD Consult Discharge Plan - Plan Referrals: Adryan Perez MD [Primary Care Provider] - Prescriptions: Apixaban [Eliquis] 5 mg PO BID #60 tablet - Attending Attestation I examined this patient 10/26, and my medical decision-making was reviewed with the Resident Physician. I agree with the documented findings, disposition and treatment plan as described except to the extent set forth below. Seen and evaluated at bedside. 72-year-old male with hypertension, diabetes, hyperlipidemia, atrial fibrillation being managed for A. fib with RVR. Currently hypotensive uncontrolled. Physical examination unremarkable. Increase Lopressor 25 mg a day, add Cardizem. Started on Eliquis however medication is covered by insurance. Start patient on warfarin instead. Continue other management. Rest of details as in the resident physicians documentation. <Atul Rueda - Last Filed: 10/26/17 17:30> Date of Encounter: 10/26/17 Time of Encounter: 08:30 - Assessment and plan (1) Atrial fibrillation Current Visit: Yes Status: Acute Assessment and plan: Patient developed RVR overnight again Increased Lopressor to 25mg BID Added Cardizem 30mg PO q8h Transition to cardizem CD in the morning Start warfarin for anticoagulation Qualifiers: Atrial fibrillation type: paroxysmal Qualified Code(s): I48.0 - Paroxysmal atrial fibrillation (2) Hypertension Current Visit: Yes Status: Acute Assessment and plan: Patient is known to have a hypertension. patient is on appropriate medication for that. At this point patient's blood pressure is acceptable range. We will continue his home medication. Qualifiers: Hypertension type: essential hypertension Qualified Code(s): I10 - Essential (primary) hypertension (3) Diabetes mellitus Current Visit: Yes Status: Acute Assessment and plan: Patient is known to have diabetes mellitus. We will follow at this point the orders from subcutaneous insulin order set. Qualifiers: Diabetes mellitus type: type 2 Diabetes mellitus terminal worker insulin use: without nursing home use Diabetes mellitus complication status: with other specified complication Qualified Code(s): E11.69 - Type 2 diabetes mellitus with other specified complication (4) Dyslipidemia Current Visit: Yes Status: Acute Assessment and plan: Patient is presently on Lipitor. We will get lipid panel tomorrow morning. We will continue home medication for now. (5) DVT prophylaxis Current Visit: Yes Status: Acute Assessment and plan: Continue lovenox, bridge to warfarin (6) Lung nodule Current Visit: Yes Status: Acute Assessment and plan: New 1.7cm left upper lobe lung nodule noted on CXR. Patient unaware of nodule in the past. No previous imaging to compare. Patient had dose of metformin recently, not advisable to obtain contrast. The patient will require follow-up with PCP for repeat imaging - Time Spent With Patient Total time spent is greater than 50% in coordination of care (as documented) at patient's floor/unit and/or counseling patient: - Subjective Interval history: The patient is seen and examined at bedside. He is comfortable this morning and has no acute complaints. He said that he did not have any problems over night, and is feeling well. - Constitutional Vitals: Temp Pulse Resp BP Pulse Ox 97.9 F 105 16 136/79 94 10/26/17 10:54 10/26/17 10:54 10/26/17 10:54 10/26/17 10:54 10/26/17 10:54 General appearance: Present: A&O X 3, pleasant, no acute distress, answers questions appropriately - Head Head exam: Present: atraumatic, normocephalic - Neck Neck exam general surgery: Present: supple, trachea midline. Absent: lymphadenopathy - Respiratory Respiratory exam: Present: CTAB. Absent: accessory muscle use, rales, rhonchi, wheezes - Cardiovascular Cardiovascular exam: Present: irregular rhythm, +S1, +S2, tachycardia. Absent: diastolic murmur, gallop, rubs, systolic murmur - GI/Abdominal GI/Abdominal exam: Present: soft, no peritoneal signs. Absent: distended, tenderness - Extremities Exam Extremities exam: Present: warm, radial pulses palpable and symmetrical. Absent : calf tenderness, cyanotic, pedal edema Additional comments: Right leg BKA - Neurological Exam Neurological exam: Present: CN II-XII intact, oriented X3, no focal deficits. Absent: pronater drift, facial droop, speech deficit - Skin Skin exam: Present: dry, intact Internal Medicine: Result - Labs CBC & Chem 7: 10/25/17 04:09 10/25/17 04:09 - ABG Interpretation ABG results: PT/INR, D-dimer PT 11.4 Seconds (9.4-12.1) 10/26/17 06:16 - Impressions Impressions Chest CT 10/25/17 12:33 IMPRESSION: 1. Left upper lobe 1.6 x 1.2 cm sub solid nodule. Please see below for follow-up recommendations. 2. Coronary artery disease. 3. Emphysema. 4. Bony changes in the thoracic spine suggestive of seronegative spondyloarthropathy, such as ankylosing spondylitis. Please correlate with clinical history. RECOMMENDATIONS: Fleischner Society guidelines for follow-up and management of incidentally detected subsolid pulmonary nodules: Solitary part-solid nodules > than or equal to 6 mm - CT at 3-6 to confirm persistence. If unchanged and solid component remains less than 6 mm, annual CT should be performed for 5 years. - Low risk patients include individuals with minimal or absent history of smoking and other known risk factors. - High risk patients include individuals with a history or smoking or known risk factors. Radiology 2017 http://pubs.[facility]na.org/doi/full/10.1148/radiol.3797740281 D/ / 10/25/2017 14:50:35 Heri Vance MD / glenn Interpreting Provider: Heri Vance MD
[2017-10-26] MEDS ORDERED: *HR* Warfarin 5 MG TABLET PO ONE (18:00)
[2017-10-26] MEDS ORDERED: Warfarin perPT PO PRN (18:00)
[2017-10-27 04:14] LABS: INR 1.1; Prothrombin Time 12.3 Seconds (9.4-12.1)
--- NOTE | 2017-10-27 07:59 | Discharge Summary ---
<Atul Rueda - Last Filed: 10/27/17 11:11> - NOTES TO OUTPATIENT PROVIDER Notes to Outpatient Provider: Mr. Goldstein was found in not well controlled by home dose of metoprolol. We did initiate Cardizem daily, and increase metoprolol dose. This will likely need to be titrated as an outpatient depending on response. We also started the patient on Coumadin as the newer agents were cost prohibitive. He will be going to the Coumadin clinic. Finally , the patient had incidental lung nodule on CT chest, will require 6mo F/U Orders not resulted at time of discharge: Pending orders 10/28/17 04:00 PT/INR [Prothrombin Time INR] [COAG] AM 04010/29/17 04:00 PT/INR [Prothrombin Time INR] [COAG] AM 0400 10/30/17 04:00 PT/INR [Prothrombin Time INR] [COAG] AM 0400 Date of Encounter: 10/27/17 Time of Encounter: 08:10 - Discharge Diagnosis (1) Atrial fibrillation Priority: Primary Status: Acute Assessment and Plan: Increased Lopressor to 25mg BID Transitioned to Cardizem CD 120mg Referral to coumadin clinic for management Qualifiers: Atrial fibrillation type: paroxysmal Qualified Code(s): I48.0 - Paroxysmal atrial fibrillation (2) Hypertension Priority: Secondary Status: Acute Assessment and Plan: Patient is known to have a hypertension. patient is on appropriate medication for that. At this point patient's blood pressure is acceptable range. We will stop HCTZ and Amlodipine Qualifiers: Hypertension type: essential hypertension Qualified Code(s): I10 - Essential (primary) hypertension (3) Diabetes mellitus Priority: Secondary Status: Acute Assessment and Plan: Continue home medications Qualifiers: Diabetes mellitus type: type 2 Diabetes mellitus fpc insulin use: without fpc use Diabetes mellitus complication status: with other specified complication Qualified Code(s): E11.69 - Type 2 diabetes mellitus with other specified complication (4) Dyslipidemia Priority: Secondary Status: Acute Assessment and Plan: Patient is presently on Lipitor. We will continue home medication (5) Lung nodule Priority: Secondary Status: Acute Assessment and Plan: New 1.7cm left upper lobe lung nodule noted on CXR. Patient unaware of nodule in the past. No previous imaging to compare. Patient had dose of metformin recently, not advisable to obtain contrast. The patient will require follow-up with PCP for repeat imaging Hospital course: Mr. Goldstein is a 72 year old male with history of CAD status post stents 4 years ago and diabetes mellitus who presented to the ED with racing heart rate and shortness of breath. He apparently does have history of remote atrial fibrillation which converted on its own, however in the ED he was found to have atrial fibrillation with rapid ventricular response. He was admitted to the hospital for management and an echocardiogram at that time did demonstrate normal left ventricular function with no obvious valvular abnormalities. He had a chest CT which did not demonstrate a 1.6 x 1.2 cm sub-solid nodule which had previously been undiagnosed, as well as emphysema and bony changes suspicious for seronegative spondyloarthropathy. Radiology recommended repeat CT in 3-6 months. The patient was initially started on a Cardizem drip which was able to convert him and then rate control him, however at cessation of the drip the patient did develop RVR again. At that time we did increase the dose of his metoprolol as well as start by mouth Cardizem which was able to bring him back into appropriate rate control. His blood pressure did remain stable throughout this time and the patient is asymptomatic at this time. In the hospital with started the patient on Eliquis, however this medication proved to be cost prohibitive and so was transitioned to Coumadin. He will be discharged on Coumadin with referral to the Coumadin clinic for management. The patient understands and is agreeable to this plan. Discharge discussed with: patient, family, nurse, case management, other ( Pharmacy) - Time Spent with Patient Total time spent providing and/or coordinating discharge services: - Discharge Medications Prescriptions: Diltiazem CD (24hr) [Cardizem CD] 120 mg PO DAILY #30 cap.er.24h Metoprolol [Lopressor] 25 mg PO BID #60 tablet Warfarin [Coumadin] 3 mg PO 1800 #14 tablet Home Medications: Allopurinol [Zyloprim 300 MG] 300 mg PO DAILY 05/29/17 [History] Aspirin [Lo-Dose Aspirin EC] 81 mg PO DAILY 05/29/17 [History] Atorvastatin Calcium [Lipitor] 20 mg PO HS 05/29/17 [History] Docusate [Colace] 100 mg PO BID #60 capsule 12/08/17 [Rx] Fluticasone Propionate Nasal [Flonase] 50 mcg NS DAILY 05/29/17 [History] Losartan Potassium [Cozaar] 100 mg PO DAILY 05/29/17 [History] metFORMIN [Glucophage] 1,000 mg PO BID 05/29/17 [History] Cholecalciferol (D-3) [Vitamin D] 1,000 unit PO DAILY 10/24/17 [History] Multivit-Min/Folic/Vit K/Lycop [Hm Mens 50 Plus Adv One Daily] 1 tab PO DAILY [History] Saw/Vit E/Sod Teagan/Lyc/Beta/Pyg [Prostate Health Caplet] 2 tab PO DAILY 10/24/17 [History] Sildenafil Citrate [Viagra] 100 mg PO AD PRN 10/24/17 [History] Zinc Gluconate [Zinc] 50 mg PO DAILY 10/24/17 [History] Diltiazem CD (24hr) [Cardizem CD] 120 mg PO DAILY #30 cap.er.24h 10/27/17 [Rx] Metoprolol [Lopressor] 25 mg PO BID #60 tablet 10/27/17 [Rx] Warfarin [Coumadin] 3 mg PO 1800 #14 tablet 10/27/17 [Rx] Allergies/Adverse Reactions: 3 Allergy/AdvReac Type Severity Reaction Status Date / Time No Known Allergies Allergy Verified 10/24/17 12:07 Date of admission: 10/24/17 13:59 Primary care physician: Adryan Perez MD Discharging clinician: Atul Rueda Anticipated date of discharge: 10/27/17 - Constitutional Vitals: Temp Pulse Resp BP Pulse Ox 97.8 F 81 16 108/70 96 10/27/17 06:53 10/27/17 06:53 10/27/17 06:53 10/27/17 06:53 10/27/17 06:53 General appearance: Present: A&O X 3, pleasant, no acute distress, answers questions appropriately Exam: - Head Head exam: Present: atraumatic, normocephalic - Neck Neck exam general surgery: Present: supple, trachea midline. Absent: lymphadenopathy - Respiratory Respiratory exam: Present: CTAB. Absent: accessory muscle use, rales, rhonchi, wheezes - Cardiovascular Cardiovascular exam: Present: irregular rhythm, +S1, +S2. Absent: diastolic murmur, gallop, rubs, systolic murmur - GI/Abdominal GI/Abdominal exam: Present: soft, no peritoneal signs. Absent: distended, tenderness - Extremities Exam Extremities exam: Present: warm, radial pulses palpable and symmetrical. Absent : calf tenderness, cyanotic, pedal edema Additional comments: Right leg BKA - Neurological Exam Neurological exam: Present: CN II-XII intact, oriented X3, no focal deficits. Absent: pronater drift, facial droop, speech deficit - Skin Skin exam: Present: dry, intact - Patient Status Disposition: Home, Self-Care Condition: Good Functional capacity at discharge: independent ambulation Overall status at discharge: patient is back to baseline - Discharge Instructions Follow Up With: Adryan Perez MD [Primary Care Provider] - (PCP will call patient with next available appointment.) Additional Instructions: Follow-up with primary care in 2-4 days Continue Metoprolol 25 mg twice a day, and Cardizem CD 120 mg once a day I will start the patient on 3 mg Coumadin nightly, however the patient will require follow-up with Coumadin clinic for long-term management. Should stop Plavix unless otherwise directed by PCP or further specialists Return to the ED for worsening symptoms, shortness of breath, chest pain, changes in level of consciousness - Diet and Activity Activity: increase activity as tolerated Diet: diabetic diet, low salt diet <Manny Estrella - Last Filed: 10/27/17 13:00> Orders not resulted at time of discharge: Pending orders 10/28/17 04:00 PT/INR [Prothrombin Time INR] [COAG] AM 04010/29/17 04:00 PT/INR [Prothrombin Time INR] [COAG] AM 0400 10/30/17 04:00 PT/INR [Prothrombin Time INR] [COAG] AM 0400 Date of Encounter: 10/27/17 - Discharge Diagnosis (1) Atrial fibrillation Status: Acute Qualifiers: Atrial fibrillation type: paroxysmal Qualified Code(s): I48.0 - Paroxysmal atrial fibrillation (2) Hypertension Status: Acute Qualifiers: Hypertension type: essential hypertension Qualified Code(s): I10 - Essential (primary) hypertension (3) Diabetes mellitus Status: Acute Qualifiers: Diabetes mellitus type: type 2 Diabetes mellitus fpc insulin 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 Goldstein is a 72 year old male - Time Spent with Patient Total time spent providing and/or coordinating discharge services: Greater than 30 minutes Date of admission: 10/24/17 13:59 Primary care physician: Adryan Perez MD - Constitutional Vitals: Temp Pulse Resp BP Pulse Ox 97.6 F 91 17 142/86 95 10/27/17 11:04 10/27/17 11:04 10/27/17 11:04 10/27/17 11:04 10/27/17 11:04 - Attending Attestation I examined this patient 10/27, and my medical decision-making was reviewed with the Resident Physician. I agree with the documented findings, disposition and treatment plan as described except to the extent set forth below. Seen and evaluated at bedside. 72-year-old male with hypertension, diabetes, hyperlipidemia, atrial fibrillation being managed for A. fib with RVR. Physical examination unremarkable. Labs and Imaging reviewed : INR sub-therapeutic Stable to be discharged home on current dose of lopressor and cardizem, as well as Warfarin, appointment wt coumadin clinic has been set up. Rest of details as in the resident physicians documentation.
[2017-10-27] MEDS ORDERED: Diltiazem CD (24hr) 120 MG CAPSULE PO SCH (09:45)
[2017-10-27] MEDS: Zinc Sulfate 220 MG CAPSULE PO SCH (10:08)
[2017-10-27] MEDS: Aspirin Enteric Coated 81 MG Tablet PO SCH (10:09)
[2017-10-27] MEDS: Cholecalciferol (D-3) 1,000 UNIT TABLET PO SCH (10:09)
[2017-10-27 11:04] VITALS: BP 142/86
--- NOTE | 2017-10-27 16:01 | Electrocardiograph Report ---
[place] [id number] Test Date: 2017-10-24 Pat Name: Prakash Goldstein Department: 104 Room: 2N4 Gender: M Inbound Telemarketer: : 1945 Requested By: Ismael Saini Order Number: [id number] Reading MD: Hal Gonzalez Measurements Intervals [place] Rate: 131 P: VT: 0 QRS: 47 QRSD: 81 T: 4 QT: 279 QTc: 356 Interpretive Statements ATRIAL FIBRILLATION WITH RAPID VENTRICULAR RESPONSE NONSPECIFIC ST & T-WAVE ABNORMALITY Electronically Signed On 10-27-2017 16:00:00 EDT by Hal Gonzalez
== END 2017-10-27 14:33 | disposition home or self-care (01) | DRG 310 ==
LOC: EMEROO 12:04 → 2NENU 13:59
PROVIDERS: ADMIT Internal Medicine; ATTEND Internal Medicine

== ENCOUNTER 2019-08-18 09:46 | Inpatient (IN) ==
[2019-08-18] MEDS ORDERED: CeFAZolin Syr 2,000MG/20 ML 2,000 MG/20 ML SYRINGE IVPB ONE (10:24)
[2019-08-18] MEDS ORDERED: Ringers Solution, Lactated 1,000 ML IVC SCH ×2 (10:30→11:00)
[2019-08-18] MEDS ORDERED: Albuterol 2.5 MG/3 ML NEBULIZER IH PRN (10:44)
[2019-08-18] MEDS ORDERED: Ondansetron 4 MG/2 ML VIAL IVP ONE ×2 (10:46→14:13)
[2019-08-18] MEDS ORDERED: *HR* OxyCODONE Immed Rel 5 MG TABLET PO PRN (10:46)
[2019-08-18] MEDS ORDERED: *HR* Rocuronium Bromide 50 MG/5 ML VIAL ONE ×2 (11:00→12:46)
[2019-08-18] MEDS ORDERED: Lidocaine -MPF 4% 5 ML AMPUL ONE (11:00)
[2019-08-18] MEDS ORDERED: *HR* FentaNYL (PF) 100 MCG/2 ML VIAL ONE ×2 (11:03→12:10)
[2019-08-18] MEDS ORDERED: *HR* Vasopressin 20 UNIT/ML VIAL ONE (11:07)
[2019-08-18] MEDS ORDERED: niCARdipine 0 MG/0 ML MLS IVC ONE (11:40)
[2019-08-18] MEDS ORDERED: *HR* Metoprolol 5 MG/5 ML VIAL IVP ONE (11:43)
[2019-08-18] MEDS ORDERED: DilTIAZem 50 MG in 0.9 % Sodium Chloride 40 ML IVC SCH (11:45)
[2019-08-18] MEDS ORDERED: Dexamethasone 4 MG/ML VIAL ONE (12:28)
[2019-08-18] MEDS: *HR* HYDROmorphone PF 0.5 MG/0.5 ML SYRINGE IVP PRN ×2 (13:45→14:00)
[2019-08-18] MEDS ORDERED: Ondansetron 4 MG/2 ML VIAL IVP PRN (14:13)
[2019-08-18] MEDS: Gabapentin 300 MG CAPSULE PO SCH ×2 (15:06→20:05)
[2019-08-18] MEDS: *HR* HYDROcodone/Acet 5/325 mg TABLET PO PRN ×2 (15:07→23:58)
[2019-08-18] MEDS: 0.9 % Sodium Chloride 1,000 ML IVC SCH (15:09)
[2019-08-18] MEDS: Ipratropium/Albuterol Neb 3 ML IH SCH ×2 (16:24→19:38)
[2019-08-18] MEDS: *HR* Heparin 5,000 UNIT/ML VIAL SQ SCH ×2 (16:29→23:44)
[2019-08-18] MEDS ORDERED: *HR* Metformin 500 MG TABLET PO SCH (17:00)
[2019-08-18] MEDS: *HR* Metformin 500 MG TABLET PO SCH (17:57)
[2019-08-18] MEDS: Famotidine 20 MG TABLET PO SCH (20:05)
[2019-08-19 01:16] LABS: Hematocrit 41.7 % (37.5-50.1); Hemoglobin 13.6 g/dL (12.9-16.9); Mean Corpuscular HGB Conc 32.6 g/dL (31.6-35.5); Mean Corpuscular Hemoglobin 29.2 pg (28.0-33.3); Mean Corpuscular Volume 89.7 fL (83.0-100.0); Platelet Count 197 K/mcL (140-400); Red Blood Count 4.65 M/mcL (4.19-5.50)
[2019-08-19 01:44] LABS: % Iron Saturation 11 % (20-55); BUN/Creatinine Ratio 18 (6-26); Blood Urea Nitrogen 17 mg/dL (8-23); Calcium 8.6 mg/dL (8.6-10.3); Carbon Dioxide 23 mEq/L (23-29); Chloride 105 mEq/L (98-107); Glucose 280 mg/dL (70-105); Iron 37 mcg/dL (65-175); Magnesium 1.7 mg/dL (1.6-2.6); Osmolality,Calculated 294 (280-300); Potassium 4.4 mEq/L (3.5-5.1); Sodium 136 mEq/L (136-145); Transferrin 235 mg/dL (203-362); eGFR For African Americans > 60 (> 60); eGFR For Non-African Americans > 60 (> 60)
[2019-08-19] MEDS: Levalbuterol Neb 0.63 MG/3 ML IH SCH ×4 (03:33→21:55)
[2019-08-19] MEDS: Ipratropium Neb 0.5 MG NEBULIZER IH SCH ×4 (03:33→21:55)
[2019-08-19] MEDS: 0.9 % Sodium Chloride 1,000 ML IVC SCH (03:36)
[2019-08-19] MEDS: *HR* Heparin 5,000 UNIT/ML VIAL SQ SCH ×3 (06:28→20:32)
[2019-08-19] MEDS: *HR* Metformin 500 MG TABLET PO SCH ×2 (07:46→16:12)
[2019-08-19] MEDS: Famotidine 20 MG TABLET PO SCH ×2 (07:46→20:32)
[2019-08-19] MEDS: Aspirin Enteric Coated 81 MG Tablet PO SCH (07:46)
[2019-08-19] MEDS: *HR* HYDROcodone/Acet 5/325 mg TABLET PO PRN ×3 (07:47→20:32)
[2019-08-19] MEDS: Gabapentin 300 MG CAPSULE PO SCH ×3 (07:47→20:32)
[2019-08-19] MEDS: DilTIAZem CD (24hr) 120 MG CAP.ER.24H PO SCH (07:48)
[2019-08-19] MEDS: allopurinoL 300 MG TABLET PO SCH (07:48)
[2019-08-19] MEDS ORDERED: Iron Sucrose Complex 400 MG in 0.9 % Sodium Chloride 250 ML IVPB ONE (08:11)
[2019-08-19] MEDS ORDERED: FLUTICASONE PROPIONATE 50 MCG NS SCH (09:00)
[2019-08-19] MEDS ORDERED: DilTIAZem CD (24hr) 120 MG CAP.ER.24H PO SCH (09:00)
[2019-08-19] MEDS ORDERED: Aspirin Enteric Coated 81 MG Tablet PO SCH (09:00)
[2019-08-19] MEDS ORDERED: allopurinoL 300 MG TABLET PO SCH (09:00)
[2019-08-19] MEDS: Fluticasone Propionate Nasal 50 MCG/SPRAY BOTTLE NS SCH (14:26)
[2019-08-20] MEDS: *HR* HYDROcodone/Acet 5/325 mg TABLET PO PRN ×5 (00:46→21:10)
[2019-08-20] MEDS: Ipratropium Neb 0.5 MG NEBULIZER IH SCH ×4 (03:42→22:09)
[2019-08-20] MEDS: Levalbuterol Neb 0.63 MG/3 ML IH SCH ×4 (03:42→22:09)
[2019-08-20] MEDS: *HR* Heparin 5,000 UNIT/ML VIAL SQ SCH ×3 (05:25→21:02)
[2019-08-20] MEDS: *HR* Metformin 500 MG TABLET PO SCH ×2 (07:53→16:59)
[2019-08-20] MEDS: Gabapentin 300 MG CAPSULE PO SCH ×3 (07:53→21:03)
[2019-08-20] MEDS: allopurinoL 300 MG TABLET PO SCH (07:54)
[2019-08-20] MEDS: Famotidine 20 MG TABLET PO SCH ×2 (07:54→21:03)
[2019-08-20] MEDS: Fluticasone Propionate Nasal 50 MCG/SPRAY BOTTLE NS SCH (07:54)
[2019-08-20] MEDS: DilTIAZem CD (24hr) 120 MG CAP.ER.24H PO SCH (07:54)
[2019-08-20] MEDS: Aspirin Enteric Coated 81 MG Tablet PO SCH (07:54)
[2019-08-21] MEDS: Levalbuterol Neb 0.63 MG/3 ML IH SCH ×4 (03:43→22:11)
[2019-08-21] MEDS: Ipratropium Neb 0.5 MG NEBULIZER IH SCH ×4 (03:43→22:11)
[2019-08-21] MEDS: *HR* Heparin 5,000 UNIT/ML VIAL SQ SCH ×3 (04:16→21:16)
[2019-08-21] MEDS: *HR* HYDROcodone/Acet 5/325 mg TABLET PO PRN ×4 (04:17→21:16)
[2019-08-21] MEDS: Aspirin Enteric Coated 81 MG Tablet PO SCH (07:42)
[2019-08-21] MEDS: DilTIAZem CD (24hr) 120 MG CAP.ER.24H PO SCH (07:43)
[2019-08-21] MEDS: Famotidine 20 MG TABLET PO SCH ×2 (07:43→21:16)
[2019-08-21] MEDS: *HR* Metformin 500 MG TABLET PO SCH ×2 (07:43→16:45)
[2019-08-21] MEDS: allopurinoL 300 MG TABLET PO SCH (07:43)
[2019-08-21] MEDS: Fluticasone Propionate Nasal 50 MCG/SPRAY BOTTLE NS SCH (07:43)
[2019-08-21] MEDS: Gabapentin 300 MG CAPSULE PO SCH ×3 (07:43→21:16)
[2019-08-22] MEDS: Ipratropium Neb 0.5 MG NEBULIZER IH SCH ×4 (03:48→22:08)
[2019-08-22] MEDS: Levalbuterol Neb 0.63 MG/3 ML IH SCH ×4 (03:48→22:08)
[2019-08-22] MEDS: *HR* Heparin 5,000 UNIT/ML VIAL SQ SCH ×3 (04:23→20:53)
[2019-08-22] MEDS: *HR* HYDROcodone/Acet 5/325 mg TABLET PO PRN ×3 (04:23→20:53)
[2019-08-22] MEDS: Fluticasone Propionate Nasal 50 MCG/SPRAY BOTTLE NS SCH (07:25)
[2019-08-22] MEDS: *HR* Metformin 500 MG TABLET PO SCH ×2 (07:26→16:38)
[2019-08-22] MEDS: Famotidine 20 MG TABLET PO SCH ×2 (07:26→20:52)
[2019-08-22] MEDS: Aspirin Enteric Coated 81 MG Tablet PO SCH (07:26)
[2019-08-22] MEDS: DilTIAZem CD (24hr) 120 MG CAP.ER.24H PO SCH (07:26)
[2019-08-22] MEDS: Gabapentin 300 MG CAPSULE PO SCH ×3 (07:26→20:52)
[2019-08-22] MEDS: allopurinoL 300 MG TABLET PO SCH (07:26)
[2019-08-23] MEDS: Levalbuterol Neb 0.63 MG/3 ML IH SCH ×4 (03:14→21:51)
[2019-08-23] MEDS: Ipratropium Neb 0.5 MG NEBULIZER IH SCH ×4 (03:14→21:51)
[2019-08-23 05:09] LABS: Hematocrit 43.7 % (37.5-50.1); Hemoglobin 14.5 g/dL (12.9-16.9); Mean Corpuscular HGB Conc 33.2 g/dL (31.6-35.5); Mean Corpuscular Hemoglobin 30.5 pg (28.0-33.3); Mean Corpuscular Volume 91.8 fL (83.0-100.0); Mean Platelet Volume 11.9 fL (9.4-12.4); Platelet Count 201 K/mcL (140-400); Red Blood Count 4.76 M/mcL (4.19-5.50); Red Cell Distribution Width 13.2 % (11.5-14.5); White Blood Count 12.3 K/mcL (4.3-11.1)
[2019-08-23 05:30] LABS: % Iron Saturation 21 % (20-55); BUN/Creatinine Ratio 27 (6-26); Blood Urea Nitrogen 22 mg/dL (8-23); Calcium 9.3 mg/dL (8.6-10.3); Carbon Dioxide 27 mEq/L (23-29); Chloride 101 mEq/L (98-107); Glucose 181 mg/dL (70-105); Iron 48 mcg/dL (65-175); Magnesium 1.5 mg/dL (1.6-2.6); Osmolality,Calculated 294 (280-300); Potassium 4.2 mEq/L (3.5-5.1); Sodium 138 mEq/L (136-145); Transferrin 162 mg/dL (203-362); eGFR For African Americans > 60 (> 60); eGFR For Non-African Americans > 60 (> 60)
[2019-08-23] MEDS: *HR* HYDROcodone/Acet 5/325 mg TABLET PO PRN ×2 (05:54→11:24)
[2019-08-23] MEDS: *HR* Heparin 5,000 UNIT/ML VIAL SQ SCH ×3 (05:54→20:31)
[2019-08-23] MEDS: Aspirin Enteric Coated 81 MG Tablet PO SCH (08:38)
[2019-08-23] MEDS: Famotidine 20 MG TABLET PO SCH ×2 (08:38→20:31)
[2019-08-23] MEDS: allopurinoL 300 MG TABLET PO SCH (08:38)
[2019-08-23] MEDS: DilTIAZem CD (24hr) 120 MG CAP.ER.24H PO SCH (08:39)
[2019-08-23] MEDS: Gabapentin 300 MG CAPSULE PO SCH ×3 (08:39→20:31)
[2019-08-23] MEDS: Fluticasone Propionate Nasal 50 MCG/SPRAY BOTTLE NS SCH (08:39)
[2019-08-23] MEDS: *HR* Metformin 500 MG TABLET PO SCH ×2 (08:39→17:18)
[2019-08-23] MEDS ORDERED: Iron Sucrose Complex 400 MG in 0.9 % Sodium Chloride 250 ML IVPB ONE (13:56)
[2019-08-24] MEDS: Levalbuterol Neb 0.63 MG/3 ML IH SCH (03:52)
[2019-08-24] MEDS: Ipratropium Neb 0.5 MG NEBULIZER IH SCH (03:52)
[2019-08-24] MEDS: *HR* Heparin 5,000 UNIT/ML VIAL SQ SCH (05:41)
[2019-08-24 07:28] VITALS: BP 131/74
[2019-08-24] MEDS: *HR* Metformin 500 MG TABLET PO SCH (08:18)
[2019-08-24] MEDS: DilTIAZem CD (24hr) 120 MG CAP.ER.24H PO SCH (08:19)
[2019-08-24] MEDS: Fluticasone Propionate Nasal 50 MCG/SPRAY BOTTLE NS SCH (08:19)
[2019-08-24] MEDS: Gabapentin 300 MG CAPSULE PO SCH (08:19)
[2019-08-24] MEDS: allopurinoL 300 MG TABLET PO SCH (08:19)
[2019-08-24] MEDS: Aspirin Enteric Coated 81 MG Tablet PO SCH (08:19)
[2019-08-24] MEDS: Famotidine 20 MG TABLET PO SCH (08:19)
== END 2019-08-24 11:51 | disposition home or self-care (01) | DRG 164 ==
LOC: SAMDAY 09:46 → 2NNU 10:56
PROVIDERS: ADMIT Thoracic Surgery (Cardiothoracic Vascular Surgery); ATTEND Thoracic Surgery (Cardiothoracic Vascular Surgery)

== ENCOUNTER 2019-10-20 11:43 | Observation (INO) ==
[2019-10-20] MEDS ORDERED: Ringers Solution, Lactated 1,000 ML IVC SCH (12:30)
[2019-10-20] MEDS ORDERED: CeFAZolin Syr 2,000MG/20 ML 2,000 MG/20 ML SYRINGE IVPB ONE (13:19)
[2019-10-20] MEDS ORDERED: *HR* FentaNYL (PF) 100 MCG/2 ML VIAL ONE ×2 (13:49→14:14)
[2019-10-20] MEDS ORDERED: *HR* Propofol 200 MG/20 ML VIAL IVP ONE ×2 (13:49→14:14)
[2019-10-20] MEDS ORDERED: Lidocaine -MPF 2% 2 ML VIAL ONE ×2 (13:49→14:17)
[2019-10-20] MEDS ORDERED: Ondansetron 4 MG/2 ML VIAL ONE ×2 (13:49→14:17)
[2019-10-20] MEDS ORDERED: Dexamethasone 4 MG/ML VIAL ONE ×2 (13:49→14:17)
[2019-10-20] MEDS ORDERED: Ondansetron 4 MG/2 ML VIAL IVP ONE (14:52)
[2019-10-20] MEDS ORDERED: *HR* OxyCODONE Immed Rel 5 MG TABLET PO PRN (14:52)
[2019-10-20] MEDS ORDERED: *HR* PHENYLEPHRINE 1,000 MCG/10 ML SYRINGE IVP ONE (14:58)
[2019-10-20] MEDS ORDERED: EPHEDrine 50 MG/ML VIAL ONE (15:15)
[2019-10-20] MEDS ORDERED: Ondansetron 4 MG/2 ML VIAL IVP PRN (16:50)
[2019-10-20] MEDS ORDERED: *HR* HYDROcodone/Acet 5/325 mg TABLET PO PRN (16:50)
[2019-10-20] MEDS ORDERED: Naloxone 0.4 MG/ML INJ IVP PRN ×2 (16:50)
[2019-10-20] MEDS ORDERED: Nitroglycerin 0.4 MG TAB.SUBL SL PRN (16:50)
[2019-10-20] MEDS: *HR* Metformin 500 MG TABLET PO SCH (17:26)
[2019-10-20] MEDS: 0.9 % Sodium Chloride 1,000 ML IVC SCH (17:26)
[2019-10-20] MEDS ORDERED: *HR* Metoprolol 5 MG/5 ML VIAL IVP ONE (22:45)
[2019-10-20] MEDS: Acetaminophen 325 MG TABLET PO PRN (23:47)
[2019-10-21] MEDS: 0.9 % Sodium Chloride 1,000 ML IVC SCH (06:48)
[2019-10-21] MEDS: Cholecalciferol (D-3) 1,000 UNIT (25MCG) TABLET PO SCH (08:25)
[2019-10-21] MEDS: allopurinoL 300 MG TABLET PO SCH (08:25)
[2019-10-21] MEDS: *HR* Metformin 500 MG TABLET PO SCH ×2 (08:26→17:27)
[2019-10-21] MEDS: Acetaminophen 325 MG TABLET PO PRN ×2 (08:30→18:39)
[2019-10-21] MEDS ORDERED: DilTIAZem CD (24hr) 120 MG CAP.ER.24H PO SCH (09:00)
[2019-10-21] MEDS: Fluticasone Propionate Nasal 50 MCG/SPRAY BOTTLE NS SCH (11:22)
[2019-10-21] MEDS ORDERED: DilTIAZem 50 MG in 0.9 % Sodium Chloride 40 ML IVC SCH (12:30)
[2019-10-21 13:06] LABS: Basophils # 0.1 K/mcL (0.0-0.2); Basophils % 0.4 %; Eosinophils # 0.1 K/mcL (0.0-0.6); Eosinophils % 0.7 %; Hematocrit 42.1 % (37.5-50.1); Hemoglobin 13.8 g/dL (12.9-16.9); Immature Granulocytes % 0.4 % (0-4); Lymphocytes # 2.6 K/mcL (0.6-4.6); Lymphocytes % 20.3 %; Mean Corpuscular HGB Conc 32.8 g/dL (31.6-35.5); Mean Corpuscular Hemoglobin 29.7 pg (28.0-33.3); Mean Corpuscular Volume 90.7 fL (83.0-100.0); Mean Platelet Volume 11.6 fL (9.4-12.4); Monocytes % 7.8 %; Platelet Count 274 K/mcL (140-400); Red Blood Count 4.64 M/mcL (4.19-5.50); Red Cell Distribution Width 13.2 % (11.5-14.5); Segmented Neutrophils % 70.4 %; White Blood Count 12.8 K/mcL (4.3-11.1)
[2019-10-21 13:25] LABS: BUN/Creatinine Ratio 20 (6-26); Blood Urea Nitrogen 16 mg/dL (8-23); Carbon Dioxide 24 mEq/L (23-29); Chloride 101 mEq/L (98-107); Glucose 101 mg/dL (70-105); Osmolality,Calculated 285 (280-300); Potassium 4.1 mEq/L (3.5-5.1); Sodium 137 mEq/L (136-145); eGFR For African Americans > 60 (> 60); eGFR For Non-African Americans > 60 (> 60)
[2019-10-22 07:10] VITALS: BP 116/72
[2019-10-22] MEDS: Cholecalciferol (D-3) 1,000 UNIT (25MCG) TABLET PO SCH (08:50)
[2019-10-22] MEDS: allopurinoL 300 MG TABLET PO SCH (08:50)
[2019-10-22] MEDS: *HR* Metformin 500 MG TABLET PO SCH (08:50)
[2019-10-22] MEDS: Fluticasone Propionate Nasal 50 MCG/SPRAY BOTTLE NS SCH (08:51)
[2019-10-22] MEDS ORDERED: DilTIAZem CD (24hr) 180 MG CAP.ER.24H PO SCH (09:00)
[2019-10-22] MEDS: Acetaminophen 325 MG TABLET PO PRN (09:11)
== END 2019-10-22 12:10 | disposition home or self-care (01) ==
LOC: 3ANU 11:43 → SAMDAY 11:43 → 3ANU 16:48
PROVIDERS: ADMIT Urology; ATTEND Urology
PROC: UROTURP (2019-10-20 13:45)